=== PATIENT | female | born 1950 | race Caucasian/White ===

== ENCOUNTER → 2018-04-01 09:02 | Outpatient (CLI) | payer MEDICARE, OTHER, SELFPAY ==
--- NOTE | 2018-04-01 | DI.RAD.S_ITS ---
This blank DEXA report has been sent in error by the PACS system. The correct and complete report will be forthcoming in 1-2 days. Thank you for your patience and understanding. Dictated by: Michael Arshad M.D. on 04/01/2018 at 11:44 Approved by: Michael Arshad M.D. on 04/01/2018 at 11:53
--- NOTE | 2018-04-01 | DI.MG.S_ITS ---
BILATERAL DIGITAL SCREENING MAMMOGRAM 3D/2D WITH CAD: 04/01/2018 CLINICAL: Routine screening. Comparison is made to exams dated: 02/04/2017 mammogram, 01/09/2016 mammogram, and 10/03/2014 mammogram - [facility]. There are scattered fibroglandular elements in both breasts. Current study was also evaluated with a Computer Aided Detection (CAD) system. No significant masses, calcifications, or other findings are seen in either breast. There has been no significant interval change. IMPRESSION: NEGATIVE There is no mammographic evidence of malignancy. A 1 year screening mammogram is recommended. This exam was interpreted at Station ID: [id number]. NOTE: For mammograms, a report in lay terms will be sent to the patient. Approximately 15% of breast malignancies will not be visualized mammographically. In the management of a palpable breast mass, a negative mammogram must not discourage biopsy of a clinically suspicious lesion. Electronically Signed By: Fabio talbot/emely:04/01/2018 17:13:41 letter sent: Normal Exam ACR BI-RADS Category 1: Negative [id number]
== END ==
PROVIDERS: PCP Nurse Practitioner Family; Visit Provider Nurse Practitioner Family
DX: Z12.31 Encounter for screening mammogram for malignant neoplasm of breast (principal); M85.852 Other specified disorders of bone density and structure, left thigh; Z78.0 Asymptomatic menopausal state; Z90.722 Acquired absence of ovaries, bilateral; Z85.42 Personal history of malignant neoplasm of other parts of uterus
CPT/HCPCS: 77063; 77067; 77080

== ENCOUNTER 2018-04-02 11:53 | Emergency (ER) | payer MEDICARE, OTHER, SELFPAY ==
--- NOTE | 2018-04-02 12:04 | ED_ITS ---
HPI - Head Injury <EMILY Tolentino - Last Filed: 04/02/18 22:08> General Chief complaint: Fall Stated complaint: fell yesterday; hit face and head Time Seen by Provider: 04/02/18 12:03 Source: patient Mode of arrival: ambulatory Limitations: no limitations History of Present Illness HPI Narrative: 67-year-old female with history of hypertension and is a nonsmoker here for complaint of a ground level fall yesterday. She states she stumbled as her toe got caught on the ground causing her to roll for. She struck her left forehead and orbit area. She reports bruising to the left forehead and to the orbit. She also reports that she has pain to her right hand and left hip area. she denies any loss of consciousness. She denies any nausea or vomiting. She reports increased swelling to the forehead and eye area today. She does not take blood thinners however she does take daily aspirin. she is ambulatory into the emergency room. MD Complaint: head injury and fall Related Data Home Medications Medication Instructions Recorded Confirmed bupropion HCl 04/02/18 citalopram 40 mg PO DAILY 04/02/18 04/02/18 fenofibrate 54 mg PO DAILY 04/02/18 04/02/18 hydrochlorothiazide 12.5 mg PO DAILY 04/02/18 04/02/18 levothyroxine 88 mcg PO DAILY 04/02/18 04/02/18 omeprazole 20 mg PO BID 04/02/18 04/02/18 Allergies Allergy/AdvReac Type Severity Reaction Status Date / Time Iodine and Iodide Containing Allergy Unknown Unverified 07/29/17 12:08 Produc [IODINE AND IODIDE CONTAINING PRODUC] morphine [MORPHINE] Allergy Unknown Unverified 07/29/17 12:08 propoxyphene [PROPOXYPHENE] Allergy Unknown Unverified 07/29/17 12:08 Review of Systems <EMILY Tolentino - Last Filed: 04/02/18 22:08> Constitutional Denies chills, Denies fever(s), Denies lethargy and Denies weakness Eyes Denies change in vision, Denies eye discharge, Denies irritation and Denies loss of vision ENT Ears, Nose, Mouth, and Throat: Denies change in voice, Denies neck pain and Denies sore throat Cardiovascular Denies chest pain, Denies irregular heart rhythm, Denies lightheadedness, Denies palpitations, Denies dyspnea, Denies dyspnea on exertion and Denies orthopnea Respiratory Denies cough, Denies dyspnea, Denies dyspnea on exertion and Denies wheezing Genitourinary Denies hematuria, Denies flank pain, Denies urinary incontinence and Denies urinary urgency Musculoskeletal Denies neck pain Comments: Pain to left hip and right hand Integumentary/Breasts Denies pruritus, Denies erythema, Denies rash and Denies wounds Neurologic Denies confusion, Denies loss of vision and Denies weakness Comments: ground level fall hitting left forehead and orbit area Psychiatric Denies anxiety, Denies confusion, Denies depression, Denies homicidal ideation and Denies suicidal ideation Endocrine Denies palpitations Hematologic/Lymphatic Denies easy bruising Allergic/Immunologic Denies wheezing Exam <EMILY Tolentino - Last Filed: 04/02/18 22:08> Initial Vital Signs Initial Vital Signs: Vital Signs Temperature 98.7 F 04/02/18 12:10 Pulse Rate 52 L 04/02/18 12:10 Respiratory Rate 20 04/02/18 12:10 Blood Pressure 133/61 04/02/18 12:10 Pulse Oximetry 100 04/02/18 12:10 Const General: cooperative and well developed Nutritional Appearance: well nourished Orientation: alert, awake, oriented x3 and not confused [facility] Head: other ( swelling and bruising to the left forehead area and left orbit area. No step-offs. No Guold signs. No open lesions) Nose: external nose normal Mouth: oral mucosae normal and moist mucous membranes Eyes Conjunctivae: conjunctivae normal Sclera: sclerae normal Pupils: PERRL EOM: EOM intact bilaterally Neck Neck: normal visual inspection, trachea midline, No lymphadenopathy, No midline deformity and No JVD Lymphatic: No lymphedema Chest Chest: normal inspection of the chest Resp Effort & Inspection: normal respiratory effort, able to speak in complete sentences, no respiratory distress and no use of accessory muscles Auscultation: clear to auscultation bilaterally, no rales, no rhonchi and no wheezes Cardio Rate: regular rate Rhythm: regular rhythm Heart Sounds: no click, no gallops, no murmurs and no rubs Pulses: normal peripheral pulses Skin General: no rashes or lesions noted, No jaundice and No petechiae Neuro General: alert, oriented x3, gait normal and no focal motor deficits Speech: speech normal Extrem Other: tenderness to palpation to the left hip. No ecchymosis. No swelling. No deformity. No signs of trauma. Distal sensation is intact. Distal range of motions intact. Distal pulses are intact. Slight swelling and bruising to the right palm. no open lesions. No deformities. Distal sensation is intact. Distal cap refill less than 2 sec. Distal range of motion is intact. <Regis Crockett DO - Last Filed: 04/03/18 09:34> Initial Vital Signs Initial Vital Signs: Vital Signs Temperature 98.7 F 04/02/18 12:10 Pulse Rate 52 L 04/02/18 12:10 Respiratory Rate 20 04/02/18 12:10 Blood Pressure 133/61 04/02/18 12:10 Pulse Oximetry 100 04/02/18 12:10 Course <EMILY Tolentino - Last Filed: 04/02/18 22:08> Orders Ordered: ED Orders 04/02/18 12:30 XR hand RT min 3V Stat XR hip w pel if done LT 2V Stat 04/02/18 12:43 CT facial bones wo con Stat CT head/brain wo con Stat Vital Signs - 8 hr 04/02/18 12:10 Temperature 98.7 F Pulse Rate 52 L Respiratory Rate 20 Blood Pressure 133/61 Pulse Oximetry 100 <Regis Crockett DO - Last Filed: 04/03/18 09:34> Orders Ordered: ED Orders 04/02/18 12:30 XR hand RT min 3V Stat XR hip w pel if done LT 2V Stat 04/02/18 12:43 CT facial bones wo con Stat CT head/brain wo con Stat Vital Signs - 8 hr 04/02/18 12:10 Temperature 98.7 F Pulse Rate 52 L Respiratory Rate 20 Blood Pressure 133/61 Pulse Oximetry 100 MDM - Head Injury <EMILY Tolentino - Last Filed: 04/02/18 22:08> Imaging Data CT scan - head: Radiologist's impression: CT Scan Report Signed Patient: Kenyetta Rust KMR#: [id number] : 8Acct:[id number] Age/Sex: 67 / FDate of Service: 04/02/18 Loc: ED Accession Number: [id number] Procedure: CT head/brain wo con Ordering Provider: Otoniel Lynn PROCEDURE: CT HEAD/BRAIN WO CON INDICATIONS: Ground level fall hitting left forehead/face TECHNIQUE: Noncontrast 4.5 mm thick angled axial sections acquired from the foramen magnum to the vertex, with coronal and sagittal reformats. For radiation dose reduction, the following was used: automated exposure control, adjustment of mA and/or kV according to patient size. COMPARISON: None. FINDINGS: Image quality: Excellent. CSF spaces: Basal cisterns are patent. No extra-axial fluid collections. The ventricles are symmetric in size and shape. Brain: No intracranial bleeds or masses. There is mild cerebral volume loss for age, with resultant ventricular and sulcal prominence. There are moderate periventricular and deep white matter chronic small vessel ischemic changes. There is intracranial internal carotid artery atherosclerosis. Skull and face: Calvarium and visualized facial bones appear intact, without suspicious lesions. Small left frontal scalp and/left periorbital facial hematoma noted. Sinuses: Visualized sinuses and mastoids are clear. IMPRESSION: No acute intracranial disease process. Dictated by: Megan Gil MD, PhD on 04/02/2018 at 12:55 Approved by: Megan Gil MD, PhD on 04/02/2018 at 12:58 Facial bones : Radiologist's impression: CT Scan Report Signed Patient: Kenyetta Rust KMR#: [id number] : 8Acct:[id number] Age/Sex: 67 / FDate of Service: 04/02/18 Loc: ED Accession Number: [id number] Procedure: CT facial bones wo con Ordering Provider: Otoniel Lynn PROCEDURE: CT FACIAL BONES WO CON INDICATIONS: ground level fall hitting left forehead and face TECHNIQUE: Noncontrast 2.5 mm thick axial images acquired from the mandible through the frontal sinuses, with coronal and sagittal reformatting. For radiation dose reduction, the following was used: automated exposure control, adjustment of mA and/or kV according to patient size. COMPARISON: None. FINDINGS: Image quality: Excellent. Bones and teeth: Orbital pulido are intact. Sinus pulido show no fracture or deformity. Nasal bones and septum are intact. Visualized portions of the mandible demonstrate no fractures or subluxation. Zygomatic arches are intact. Pterygoid plates are intact. Visualized portions of the skull base and auditory canals are intact. Incidental note made of osteoarthritic degenerative changes in the temporomandibular joints. Sinuses: Paranasal sinuses are aerated, without fluid levels, mucosal thickening, or mucoceles. Mastoid air cells are aerated. Soft tissues: Small left frontal scalp and left periorbital facial hematoma noted. No enlarged lymph nodes. No soft tissue lacerations or debris. Vascular: Visualized vascular structures appear normal in the absence of contrast. Bony vascular foramina and canals are intact. IMPRESSION: No fracture Dictated by: Megan Gil MD, PhD on 04/02/2018 at 12:59 Approved by: Megan Gil MD, PhD on 04/02/2018 at 13:03 left hip : Radiologist's impression: [address] [place] [id number] XRay Report Signed Patient: Kenyetta Rust KMR#: [id number] : 8Acct:[id number] Age/Sex: 67 / FDate of Service: 04/02/18 Loc: ED Accession Number: [id number] Procedure: XR hip w pel if done LT 2V Ordering Provider: Otoniel Lynn PROCEDURE: XR HIP W PEL IF DONE LT 2V INDICATIONS: ground level fall landing on left hip TECHNIQUE: AP pelvis with lateral view(s) of the left hip(s). COMPARISON: None. FINDINGS: Bones: No fractures or dislocations. Lateral curvature of the visualized lower lumbar spine with multilevel discogenic changes. Mild bilateral hip joint degeneration. Pelvic ring appears intact. No suspicious bony lesions. Chronic calcification adjacent to the greater trochanters bilaterally indicating chronic hip abductor tendinopathy Soft tissues: The visualized bowel gas pattern is normal. No suspicious soft tissue calcifications. IMPRESSION: No fracture. Degenerative changes as above. Dictated by: Hector Patel M.D. on 04/02/2018 at 12:53 Approved by: Hector Patel M.D. on 04/02/2018 at 12:55 right hand: Radiologist's impression: [address] [address] XRay Report Signed Patient: Kenyetta Rust KMR#: [id number] : 8Acct:[id number] Age/Sex: 67 / FDate of Service: 04/02/18 Loc: ED Accession Number: [id number] Procedure: XR hand RT min 3V Ordering Provider: Otoniel Lynn PROCEDURE: XR HAND RT MIN 3V INDICATIONS: pain to right hand after ground level fall TECHNIQUE: 3 views of the hand(s) acquired. COMPARISON: None. FINDINGS: Bones: No fractures or dislocations. Carpal bones are normally aligned. No suspicious bony lesions. Fifth metacarpal chronic sessile exostosis. First CMC and triscaphe joint degeneration, and diffuse IP osteoarthritis Soft tissues: No suspicious soft tissue calcifications. IMPRESSION: No fracture identified. If the patient's pain or other symptoms persist, consider further follow up radiographs in 10 days to assess for occult injury, or evaluation with dedicated MRI. Dictated by: Hector Patel M.D. on 04/02/2018 at 12:55 Approved by: Hector Patel M.D. on 04/02/2018 at 12:57 [facility] Narrative Medical decision making narrative: x-rays of the left hip in the right hand were obtained were negative for any acute fractures. Head CT and facial bone CT was obtained and was negative for any acute fractures. Signs symptoms presents as contusions to the left hip and the right hand and left forehead and face. Minor head injury instructions are provided with warning signs return to the emergency room. Over the for Tylenol or Motrin as needed for any discomfort. Ice to help with any swelling. follow up with primary care provider in 1 week for re-evaluation. For any worsening symptoms return to the emergency room. Discharge Plan Departure Patient Disposition: Home Clinical Impression: Contusion of left hip, Contusion of hand, right, Contusion of face, Minor closed head injury Discharge Date/Time: 04/02/18 13:50 Interventions: ED Discharge Assessment Last Done: 04/02/18 13:49 Instructions: DI for Contusion, DI for Closed Head Injury Activity Restrictions/Additional Instructions: imaging today was negative for any acute fractures. Signs and symptoms presents as contusions to face hand and hip. use [id number] Tylenol or Motrin as needed for any discomfort. use ice to the swollen area 20 min at a time a few times a day over the next few days to help with any swelling. Minor head injury instructions are provided with warning signs return to the emergency room. Follow up with primary care provider in 1 week. For any worsening symptoms return to the emergency room. Prescriptions: No Action bupropion HCl 150 mg tablet sustained-release 12 hr RF: 0 citalopram 40 mg tablet 40 mg PO DAILY RF: 0 levothyroxine 88 mcg tablet 88 mcg PO DAILY RF: 0 omeprazole 20 mg capsule,delayed release(DR/EC) 20 mg PO BID RF: 0 hydrochlorothiazide 12.5 mg tablet 12.5 mg PO DAILY RF: 0 fenofibrate 54 mg tablet 54 mg PO DAILY RF: 0 Referrals: Flaca Noble ARNP [Primary Care Provider] - <Regis Crockett DO - Last Filed: 04/03/18 09:34> [facility] ED Attending Vickie Attestation: I was immediately available in the department for consultation. Documentation has been reviewed. I agree with assessment and plan.
[2018-04-02 12:10] VITALS: BP 133/61; PULSE 52; RESP 20; TEMP 37.1; O2SAT 100; BMI 35.6
--- NOTE | 2018-04-02 12:30 | DI.RAD.S_ITS ---
PROCEDURE: XR HAND RT MIN 3V INDICATIONS: pain to right hand after ground level fall TECHNIQUE: 3 views of the hand(s) acquired. COMPARISON: None. FINDINGS: Bones: No fractures or dislocations. Carpal bones are normally aligned. No suspicious bony lesions. Fifth metacarpal chronic sessile exostosis. First CMC and triscaphe joint degeneration, and diffuse IP osteoarthritis Soft tissues: No suspicious soft tissue calcifications. IMPRESSION: No fracture identified. If the patient's pain or other symptoms persist, consider further follow up radiographs in 10 days to assess for occult injury, or evaluation with dedicated MRI. Dictated by: Hector Patel M.D. on 04/02/2018 at 12:55 Approved by: Hector Patel M.D. on 04/02/2018 at 12:57
--- NOTE | 2018-04-02 12:30 | DI.RAD.S_ITS ---
PROCEDURE: XR HIP W PEL IF DONE LT 2V INDICATIONS: ground level fall landing on left hip TECHNIQUE: AP pelvis with lateral view(s) of the left hip(s). COMPARISON: None. FINDINGS: Bones: No fractures or dislocations. Lateral curvature of the visualized lower lumbar spine with multilevel discogenic changes. Mild bilateral hip joint degeneration. Pelvic ring appears intact. No suspicious bony lesions. Chronic calcification adjacent to the greater trochanters bilaterally indicating chronic hip abductor tendinopathy Soft tissues: The visualized bowel gas pattern is normal. No suspicious soft tissue calcifications. IMPRESSION: No fracture. Degenerative changes as above. Dictated by: Hector Patel M.D. on 04/02/2018 at 12:53 Approved by: Hector Patel M.D. on 04/02/2018 at 12:55
--- NOTE | 2018-04-02 12:43 | DI.CT.S_ITS ---
PROCEDURE: CT FACIAL BONES WO CON INDICATIONS: ground level fall hitting left forehead and face TECHNIQUE: Noncontrast 2.5 mm thick axial images acquired from the mandible through the frontal sinuses, with coronal and sagittal reformatting. For radiation dose reduction, the following was used: automated exposure control, adjustment of mA and/or kV according to patient size. COMPARISON: None. FINDINGS: Image quality: Excellent. Bones and teeth: Orbital pulido are intact. Sinus pulido show no fracture or deformity. Nasal bones and septum are intact. Visualized portions of the mandible demonstrate no fractures or subluxation. Zygomatic arches are intact. Pterygoid plates are intact. Visualized portions of the skull base and auditory canals are intact. Incidental note made of osteoarthritic degenerative changes in the temporomandibular joints. Sinuses: Paranasal sinuses are aerated, without fluid levels, mucosal thickening, or mucoceles. Mastoid air cells are aerated. Soft tissues: Small left frontal scalp and left periorbital facial hematoma noted. No enlarged lymph nodes. No soft tissue lacerations or debris. Vascular: Visualized vascular structures appear normal in the absence of contrast. Bony vascular foramina and canals are intact. IMPRESSION: No fracture Dictated by: Megan Gil MD, PhD on 04/02/2018 at 12:59 Approved by: Megan Gil MD, PhD on 04/02/2018 at 13:03
--- NOTE | 2018-04-02 12:43 | DI.CT.S_ITS ---
PROCEDURE: CT HEAD/BRAIN WO CON INDICATIONS: Ground level fall hitting left forehead/face TECHNIQUE: Noncontrast 4.5 mm thick angled axial sections acquired from the foramen magnum to the vertex, with coronal and sagittal reformats. For radiation dose reduction, the following was used: automated exposure control, adjustment of mA and/or kV according to patient size. COMPARISON: None. FINDINGS: Image quality: Excellent. CSF spaces: Basal cisterns are patent. No extra-axial fluid collections. The ventricles are symmetric in size and shape. Brain: No intracranial bleeds or masses. There is mild cerebral volume loss for age, with resultant ventricular and sulcal prominence. There are moderate periventricular and deep white matter chronic small vessel ischemic changes. There is intracranial internal carotid artery atherosclerosis. Skull and face: Calvarium and visualized facial bones appear intact, without suspicious lesions. Small left frontal scalp and/left periorbital facial hematoma noted. Sinuses: Visualized sinuses and mastoids are clear. IMPRESSION: No acute intracranial disease process. Dictated by: Megan Gil MD, PhD on 04/02/2018 at 12:55 Approved by: Megan Gil MD, PhD on 04/02/2018 at 12:58
[2018-04-02 13:43] VITALS: BP 126/59; PULSE 46; RESP 16; O2SAT 99
[2018-04-02 13:49] VITALS: BP 126/59; PULSE 58
== END 2018-04-02 13:50 | disposition home or self-care (01) ==
PROVIDERS: Emergency Provider Nurse Practitioner Family; PCP Nurse Practitioner Family
DX: S00.90XA Unspecified superficial injury of unspecified part of head, initial encounter (principal); S70.02XA Contusion of left hip, initial encounter; S60.221A Contusion of right hand, initial encounter; S00.83XA Contusion of other part of head, initial encounter; W01.0XXA Fall on same level from slipping, tripping and stumbling without subsequent striking against object, initial encounter
CPT/HCPCS: 70450; 70486; 73130; 73502; 99282; 99285

== ENCOUNTER → 2018-08-26 13:58 | Outpatient (CLI) | payer MEDICARE, OTHER, SELFPAY ==
--- NOTE | 2018-08-26 | DI.MRI.S_ITS ---
PROCEDURE: MR STROKE Pre- and post-contrast brain MRI, non-contrast brain MR angiogram, pre- and postcontrast neck MR angiogram INDICATIONS: RECURRENT FALLS/HYPERTENSION TECHNIQUE: Brain: Noncontrast axial T1 spin echo, axial T2 fast spin echo, sagittal and axial FLAIR, coronal T2 fast spin echo, axial gradient echo, axial diffusion and ADC through the brain. After the administration of contrast, axial 3D VIBE of the cranial vasculature and brain. Brain MRA: Non-contrast 3-D time of flight MR angiogram, with multiple ulillup-mphaemycs-itxxidobcm (MIP) reformats performed. Neck MRA: Axial and sagittal TruFISP through the neck. Coronal dynamic MR angiogram during administration of contrast in the arterial and venous phases, with 3-dimenstional xslvvro-kpswuawhq-dennmutwvh (MIP) reformats constructed from subtraction images. COMPARISON: None. FINDINGS: Image quality: Excellent. BRAIN: CSF spaces: Ventricles are normal in size and shape. Basal cisterns are patent. No extra-axial fluid collections. Brain: No intracranial bleeds or mass effects. Solorio-white matter interface is normal. Diffusion weighted images show no acute ischemic insults. Brainstem appears normal. Normal intravascular flow voids are present. No abnormal intracranial enhancement. Skull and face: Calvarial marrow signal is normal. Orbits appear normal. Note is made of bilateral lens replacements. Sinuses: Sinuses and mastoids are clear. BRAIN MR ANGIOGRAM: Anterior circulation: Intracranial internal carotid arteries are normal in size and enhancement. There is a diminutive left A1 segment, with a corresponding robust right A1 segment. This is considered to be a normal developmental variant of the tolowa dee-ni' of [place], of typically no clinical consequence. The flow within the paired anterior cerebral arteries is otherwise normal and symmetric. The flow within the middle cerebral arteries is normal and symmetric. The anterior communicating artery is seen. No stenoses, occlusions, or aneurysms. Posterior circulation: The visualized portions of the vertebral arteries demonstrate normal caliber, and join to form a normal appearing basilar artery. The flow within the posterior cerebral arteries is normal and symmetric. No stenoses, occlusions, or aneurysms. NECK MR ANGIOGRAM: Carotids: Great vessels demonstrate a conventional anatomy as they arise from the aortic arch. The origins of the common carotid arteries appear patent. The calibers and courses of both common carotid arteries are normal. The bifurcation regions appear normal bilaterally. The internal carotid arteries demonstrate normal caliber. There is prominent tortuosity seen of the internal carotid arteries. Posterior circulation: The origins of the vertebral arteries appear patent. More superior portions of both vertebral arteries demonstrate normal course and caliber, and join to form a normal appearing basilar artery. Miscellaneous: Subclavian arteries appear patent. Pre-contrast images through the neck show no soft tissue abnormalities. IMPRESSION: BRAIN MRI: No findings of acute or subacute infarction can be seen. Note is made of age-appropriate brain parenchymal volume loss and chronic small vessel ischemic changes. No masses or abnormal enhancement can be seen. BRAIN MR ANGIOGRAM: No significant intracranial arterial abnormality is seen. NECK MR ANGIOGRAM: Within the arteries of the neck, no hemodynamically significant stenosis can be seen. Prominently tortuous internal carotid arteries are noted. Dictated by: Mati Vieira M.D. on 08/26/2018 at 17:12 Approved by: Mati Vieira M.D. on 08/26/2018 at 17:16
== END ==
PROVIDERS: PCP Nurse Practitioner Family; Visit Provider Nurse Practitioner Family
DX: Z91.81 History of falling (principal); I10 Essential (primary) hypertension; I77.1 Stricture of artery
CPT/HCPCS: 70548; 70553; A9579

== ENCOUNTER 2019-02-03 13:00 | Outpatient (RCR) | payer MEDICARE, OTHER, SELFPAY ==
--- NOTE | 2018-11-16 13:32 | PT.OIE ---
Current Diagnoses Full incontinence of feces (11/10/18) Provider Visit Care Team Role Provider Type EMILY Ko Attending Provider Non-Staff Primary Care Provider Specialty: Medical Address: [address] [place] [address], [id number] Email: Physical Therapy Initial Evaluation PT-OP-A Visit Information Start: 11/10/18 10:59 Freq: Status: Active Protocol: Document 11/10/18 10:45 [facility] (Rec: 11/16/18 13:31 [facility] [email or web address]) Out-Patient Physical Therapy Visit Information Visit Information Visit Type Initial Evaluation Visit Note 68 year old female with c/o fecal incontinence as well as urinary incontinence Visit Start Time 10:45 Visit Stop Time 11:30 Total Visit Minutes 45 Visit Number 1 Evaluation Information Evaluation Date 11/10/18 PT-OP-B Current Condition Start: 11/10/18 10:59 Freq: Status: Active Protocol: Document 11/10/18 11:00 [facility] (Rec: 11/10/18 11:17 [facility] [id number]) Current Condition History of Current Condition Onset Date symptoms began several months ago Current Complaints fecal incontinence History of Current Condition In the last few weeks symptoms of fecal leakage have not been as bad. Pt reports she will get a pain or a cramping sensation in her abdomen and she knows with that sensation that she has to find a bathroom or she will leak. Pt reports 3 times per day she has a bowel movement. She is reporting urinary leakage as well frequently Hx of partial hysterectomy 1978, gall bladder sugery 1995 , and scoliosis, she has pain in her back all the time. Treatment Goals Patient/Caregiver Goals Include reducing fecal incontinence Current Functional Impairments (Reported) Functional Limitations- Recreation/ limited with recreational Hobbies activities due to fecal leakage PT-OP-I Pelvic Floor Start: 11/10/18 10:59 Freq: Status: Active Protocol: Document 11/10/18 10:45 [facility] (Rec: 11/16/18 13:31 [facility] [email or web address]) Pelvic Floor Assessment Urine Pelvic Floor Surgery No Urinary Symptoms Urge Sensation Leakage Size Medium Leakage Cause Urge Other Leakage Causes symptoms of urinary leakage are worse first thing in the am as she often leaks upon first waking up in the am Leaks Per Day varies Voiding Frequency 7-8 times per day Nocturia 1 Urine Pad Type Panty Liner Pelvic Clock Pelvic Clock 12-3 Atrophy Pelvic Clock 3-6 Guarding Tenderness Tightness Pelvic Clock 6-9 Atrophy Pelvic Clock 9-12 Atrophy Pelvic Clock Other left lateral wall of the levator ani is very guarded and tight SEMG (uV) Baseline 6.0 10 Second Contraction 8 Recruitment Pattern Poor/Slow Relaxation Poor/Slow Holding Fair Stability of Hold Fair SEMG Stability of Rest Poor/Slow Contraction Ability Voluntary Contraction Weak Voluntary Relaxation Weak Manual Muscle Testing Left 2 Manual Muscle Testing Right 2 Manual Muscle Testing Anterior 2 Manual Muscle Testing Posterior 2 Muscle Endurance (Seconds) 4 Comments Pelvic Floor Comments rectal sensor was used vaginally today as Kenyetta felt the vaginal sensor was uncomfortable due to tightness in the tissue. Elevated resting tone of the levator ani on EMG biofeedback at 6 uv PT-OP-M Strength Start: 11/10/18 10:59 Freq: Status: Active Protocol: Document 11/10/18 10:45 [facility] (Rec: 11/16/18 13:31 [facility] [email or web address]) Trunk Strength Trunk Manual Muscle Testing Testing Position Supine Flexion 2+ Poor+ Core Stabilization poor activation of the transverse abdominal musculature Hip Strength Hip Manual Muscle Testing Left Abduction 3 Fair External Rotation 3 Fair Right Abduction 3 Fair External Rotation 3 Fair PT-OP-Q Treatments Start: 11/10/18 10:59 Freq: Status: Active Protocol: Document 11/10/18 10:45 [facility] (Rec: 11/16/18 13:31 [facility] [email or web address]) Therapeutic Exercises Supine Exercises 2 Supine Exercise Name pelvic floor long holds x 10 seconds and relax x 10 sec Side bilateral Reps/Minutes 2-3 sets per day x 10 reps Comments EMG biofeedback assisted 1 Supine Exercise Name modified pelvic floor stretch in happy baby position Side bilateral Reps/Minutes hold 1-2 min PT-OP-T Assessment and Plan Start: 11/10/18 10:59 Freq: Status: Active Protocol: Document 11/10/18 10:45 [facility] (Rec: 11/16/18 13:31 [facility] [email or web address]) Physical Therapy Assessment Rehab Potential Rehabilitation Potential Good Evaluation Complexity Number of Personal Factors/Comorbidities 0 Number of Body Systems Impaired 1-2 Clinical Presentation at Evaluation Stable Impairments Impairments Activity Tolerance Pain Soft Tissue Mobility Strength Goals Four Impairment Guarding of the left lateral wall of the illiococcygeus Snf Goal (LTG) With a home stretching program and manual therapy there is no longer guarding in the left illiococcygeus and Kenyetta is able to relax her pelvic floor to baseline on EMG biofeedback LTG Duration 8 weeks Three Impairment Decreased endurance of the pelvic floor < 4 second hold time Short Term Goal (STG) Kenyetta is able to improve the endurance of her pelvic floor to 10 second hold time in supine without substitution of her gluteals or upper abdominal wall. STG Duration 4 weeks Snf Goal (LTG) Kenyetta is able to sustain a pelvic floor contraction in standing for 10 seconds without global muscle substitution LTG Duration 8 weeks Two Impairment pelvic floor weakness with MMT 2/5 pelvic clock Short Term Goal (STG) With EMG biofeedback Kenyetta has improved awareness of the pelvic floor and is demonstrating improved facilitation STG Duration 4 weeks Snf Goal (LTG) Improve strength of the pelvic floor to 3/5 or greater on MMT for improved support of the bowels and bladder LTG Duration 8 weeks One Impairment Fecal incontinence and urinary urge incontinence Tutoring Assistant Goal (LTG) Praveena is able to improve her pelvic floor strength to reduce incidence of both fecal and urinary incontinence. LTG Duration 8 weeks Assessment Summary Assessment Kenyetta presents to physical therapy today with signs and symptoms consistent with pelvic floor weakness and fecal leakage. She is also presenting with urinary urge incontinence. She reports her symptoms have gotten better on their own in the past month and she is not sure why but she is using mini pads now instead of the depends daily. With pelvic floor examination she is weak in the levator ani with 2/5 MMT for all parts of the levator ani. She is very guarded in the left lateral wall of the illiococcygeus and has difficulty relaxing here. Her resting tone on EMG biofeedback is elevated at 6.0 uv. She has difficulty sustaining a contraction of her pelvic floor greater than 4 seconds. Treatment will focus on both relaxed awareness of the pelvic floor to fully empty her bladder as well as bowel training to help fully eliminate stool. Treatment will also focus on pelvic floor strengthening to help support the bowel and bladder and reduce both urinary and fecal incontinence . Kenyetta is a good candidate for PT Physical Therapy Plan Frequency and Duration Frequency of Treatment 1x/Week Duration of Treatment 8 weeks Plan of Care Start Date 11/10/18 Plan of Care End Date 01/05/19 Therapeutic Interventions Therapeutic Interventions Home Exercise Program Manual Therapy Neuromuscular Re-education Patient/Caregiver Education Self-Care/Home Management Soft Tissue Mobilization Therapeutic Exercises Modalities Biofeedback
--- NOTE | 2018-11-17 11:53 | PT.OTN ---
Current Diagnoses Full incontinence of feces (11/17/18) Physical Therapy Treatment Note PT-OP-A Visit Information Start: 11/10/18 10:59 Freq: Status: Active Protocol: Document 11/17/18 11:47 [facility] (Rec: 11/17/18 11:53 [facility] [email or web address]) Out-Patient Physical Therapy Visit Information Visit Information Visit Type Treatment Note Visit Start Time 10:55 Visit Stop Time 11:40 Total Visit Minutes 45 Visit Number 2 PT-OP-B Current Condition Start: 11/10/18 10:59 Freq: Status: Active Protocol: Document 11/10/18 11:00 [facility] (Rec: 11/10/18 11:17 [facility] [id number]) Current Condition History of Current Condition Onset Date symptoms began several months ago Current Complaints fecal incontinence History of Current Condition In the last few weeks symptoms of fecal leakage have not been as bad. Pt reports she will get a pain or a cramping sensation in her abdomen and she knows with that sensation that she has to find a bathroom or she will leak. Pt reports 3 times per day she has a bowel movement. She is reporting urinary leakage as well frequently Hx of partial hysterectomy 1978, gall bladder sugery 1995 , and scoliosis, she has pain in her back all the time. Treatment Goals Patient/Caregiver Goals Include reducing fecal incontinence Current Functional Impairments (Reported) Functional Limitations- Recreation/ limited with recreational Hobbies activities due to fecal leakage PT-OP-C Subjective Start: 11/10/18 10:59 Freq: Status: Active Protocol: Document 11/17/18 11:47 [facility] (Rec: 11/17/18 11:53 [facility] [email or web address]) OP-PT Subjective Patient Comments Patient Comments Kenyetta reports she has been working on her exercises and she is a little sore across her lower abdomen PT-OP-I Pelvic Floor Start: 11/10/18 10:59 Freq: Status: Active Protocol: Document 11/10/18 10:45 [facility] (Rec: 11/16/18 13:31 [facility] [email or web address]) Pelvic Floor Assessment Urine Pelvic Floor Surgery No Urinary Symptoms Urge Sensation Leakage Size Medium Leakage Cause Urge Other Leakage Causes symptoms of urinary leakage are worse first thing in the am as she often leaks upon first waking up in the am Leaks Per Day varies Voiding Frequency 7-8 times per day Nocturia 1 Urine Pad Type Panty Liner Pelvic Clock Pelvic Clock 12-3 Atrophy Pelvic Clock 3-6 Guarding Tenderness Tightness Pelvic Clock 6-9 Atrophy Pelvic Clock 9-12 Atrophy Pelvic Clock Other left lateral wall of the levator ani is very guarded and tight SEMG (uV) Baseline 6.0 10 Second Contraction 8 Recruitment Pattern Poor/Slow Relaxation Poor/Slow Holding Fair Stability of Hold Fair SEMG Stability of Rest Poor/Slow Contraction Ability Voluntary Contraction Weak Voluntary Relaxation Weak Manual Muscle Testing Left 2 Manual Muscle Testing Right 2 Manual Muscle Testing Anterior 2 Manual Muscle Testing Posterior 2 Muscle Endurance (Seconds) 4 Comments Pelvic Floor Comments rectal sensor was used vaginally today as Kenyetta felt the vaginal sensor was uncomfortable due to tightness in the tissue. Elevated resting tone of the levator ani on EMG biofeedback at 6 uv PT-OP-M Strength Start: 11/10/18 10:59 Freq: Status: Active Protocol: Document 11/10/18 10:45 [facility] (Rec: 11/16/18 13:31 [facility] [email or web address]) Trunk Strength Trunk Manual Muscle Testing Testing Position Supine Flexion 2+ Poor+ Core Stabilization poor activation of the transverse abdominal musculature Hip Strength Hip Manual Muscle Testing Left Abduction 3 Fair External Rotation 3 Fair Right Abduction 3 Fair External Rotation 3 Fair PT-OP-Q Treatments Start: 11/10/18 10:59 Freq: Status: Active Protocol: Document 11/17/18 11:47 [facility] (Rec: 11/17/18 11:53 [facility] [email or web address]) Therapeutic Exercises Supine Exercises 6 Supine Exercise Name quick contraction Reps/Minutes 2 sec on 2 sec off x 10 reps 5 Supine Exercise Name Roll outs with theraband Reps/Minutes 3 x 10 2 second hold 4 Supine Exercise Name ball squeeze with pelvic floor contraction Reps/Minutes x 10 reps 5 second hold 3 Supine Exercise Name piriformis stretch Reps/Minutes 2 x 30 second hold time 2 Supine Exercise Name pelvic floor long holds x 10 seconds and relax x 10 sec Side bilateral Reps/Minutes 2-3 sets per day x 10 reps Comments EMG biofeedback assisted 1 Supine Exercise Name modified pelvic floor stretch in happy baby position Side bilateral Reps/Minutes hold 1-2 min Neuro Re-Education Treatment Other Activities 1 Details EMG biofeedback pelvic floor facilitation and neuro facilitation Comments Pelvic floor neuro facilitation and worked on relaxed awareness of the pelvic floor. Kenyetta was able to drop to baseline, also worked on urge deference technique PT-OP-T Assessment and Plan Start: 11/10/18 10:59 Freq: Status: Active Protocol: Document 11/17/18 11:47 [facility] (Rec: 11/17/18 11:53 [facility] [email or web address]) Physical Therapy Assessment Assessment Summary Assessment Average resting tone on EMG biofeedback relaxed to baseline today following stretches. Average work today was 5.2 uv with average rest of 1.5 uv and max of 11.8 uv Physical Therapy Plan Frequency and Duration Frequency of Treatment 1x/Week Duration of Treatment 8 weeks Plan of Care Start Date 11/10/18 Plan of Care End Date 01/05/19 Therapeutic Interventions Therapeutic Interventions Home Exercise Program Manual Therapy Neuromuscular Re-education Patient/Caregiver Education Self-Care/Home Management Soft Tissue Mobilization Therapeutic Exercises Modalities Biofeedback Next Visit Focus/Plan Next Note Type Treatment Note Next Visit Plan review urge deference technique and continue to progress pelvic floor and inner core stabilization
--- NOTE | 2018-12-20 08:16 | PT.OTN ---
Current Diagnoses Full incontinence of feces (12/15/18) Physical Therapy Treatment Note PT-OP-A Visit Information Start: 11/10/18 10:59 Freq: Status: Active Protocol: Document 12/15/18 11:02 [facility] (Rec: 12/15/18 11:09 [facility] [id number]) Out-Patient Physical Therapy Visit Information Visit Information Visit Type Treatment Note Visit Note pt was 15 min late due to traffic Visit Start Time 11:00 Visit Stop Time 11:30 Total Visit Minutes 30 Visit Number 3 PT-OP-B Current Condition Start: 11/10/18 10:59 Freq: Status: Active Protocol: Document 11/10/18 11:00 [facility] (Rec: 11/10/18 11:17 [facility] [id number]) Current Condition History of Current Condition Onset Date symptoms began several months ago Current Complaints fecal incontinence History of Current Condition In the last few weeks symptoms of fecal leakage have not been as bad. Pt reports she will get a pain or a cramping sensation in her abdomen and she knows with that sensation that she has to find a bathroom or she will leak. Pt reports 3 times per day she has a bowel movement. She is reporting urinary leakage as well frequently Hx of partial hysterectomy 1978, gall bladder sugery 1995 , and scoliosis, she has pain in her back all the time. Treatment Goals Patient/Caregiver Goals Include reducing fecal incontinence Current Functional Impairments (Reported) Functional Limitations- Recreation/ limited with recreational Hobbies activities due to fecal leakage PT-OP-C Subjective Start: 11/10/18 10:59 Freq: Status: Active Protocol: Document 12/15/18 11:02 [facility] (Rec: 12/15/18 11:09 [facility] [id number]) OP-PT Subjective Patient Comments Patient Comments Not as sore across her abdomen now, symptoms are better, no more cramping sensation and very little leakage now. Patient Reported Progress Improving PT-OP-I Pelvic Floor Start: 11/10/18 10:59 Freq: Status: Active Protocol: Document 11/10/18 10:45 [facility] (Rec: 11/16/18 13:31 [facility] [email or web address]) Pelvic Floor Assessment Urine Pelvic Floor Surgery No Urinary Symptoms Urge Sensation Leakage Size Medium Leakage Cause Urge Other Leakage Causes symptoms of urinary leakage are worse first thing in the am as she often leaks upon first waking up in the am Leaks Per Day varies Voiding Frequency 7-8 times per day Nocturia 1 Urine Pad Type Panty Liner Pelvic Clock Pelvic Clock 12-3 Atrophy Pelvic Clock 3-6 Guarding,Tenderness,Tightness Pelvic Clock 6-9 Atrophy Pelvic Clock 9-12 Atrophy Pelvic Clock Other left lateral wall of the levator ani is very guarded and tight SEMG (uV) Baseline 6.0 10 Second Contraction 8 Recruitment Pattern Poor/Slow Relaxation Poor/Slow Holding Fair Stability of Hold Fair SEMG Stability of Rest Poor/Slow Contraction Ability Voluntary Contraction Weak Voluntary Relaxation Weak Manual Muscle Testing Left 2 Manual Muscle Testing Right 2 Manual Muscle Testing Anterior 2 Manual Muscle Testing Posterior 2 Muscle Endurance (Seconds) 4 Comments Pelvic Floor Comments rectal sensor was used vaginally today as Kenyetta felt the vaginal sensor was uncomfortable due to tightness in the tissue. Elevated resting tone of the levator ani on EMG biofeedback at 6 uv PT-OP-M Strength Start: 11/10/18 10:59 Freq: Status: Active Protocol: Document 11/10/18 10:45 [facility] (Rec: 11/16/18 13:31 [facility] [email or web address]) Trunk Strength Trunk Manual Muscle Testing Testing Position Supine Flexion 2+ Poor+ Core Stabilization poor activation of the transverse abdominal musculature Hip Strength Hip Manual Muscle Testing Left Abduction 3 Fair External Rotation 3 Fair Right Abduction 3 Fair External Rotation 3 Fair PT-OP-Q Treatments Start: 11/10/18 10:59 Freq: Status: Active Protocol: Document 12/15/18 11:00 [facility] (Rec: 12/20/18 08:16 [facility] [email or web address]) Therapeutic Exercises Supine Exercises 6 Supine Exercise Name quick contraction Reps/Minutes 2 sec on 2 sec off x 10 reps 5 Supine Exercise Name Roll outs with theraband Reps/Minutes 3 x 10 2 second hold 4 Supine Exercise Name ball squeeze with pelvic floor contraction Reps/Minutes x 10 reps 5 second hold 3 Supine Exercise Name piriformis stretch Reps/Minutes 2 x 30 second hold time 2 Supine Exercise Name pelvic floor long holds x 10 seconds and relax x 10 sec Side bilateral Reps/Minutes 2-3 sets per day x 10 reps Comments EMG biofeedback assisted 1 Supine Exercise Name modified pelvic floor stretch in happy baby position Side bilateral Reps/Minutes hold 1-2 min PT-OP-T Assessment and Plan Start: 11/10/18 10:59 Freq: Status: Active Protocol: Document 12/15/18 11:00 [facility] (Rec: 12/20/18 08:16 [facility] [email or web address]) Physical Therapy Assessment Assessment Summary Assessment Good increase in stretch average work today was 7.0 uv and max was 12 uv. Resting tone continues to decrease Physical Therapy Plan Frequency and Duration Frequency of Treatment 1x/Week Duration of Treatment 8 weeks Plan of Care Start Date 11/10/18 Plan of Care End Date 01/05/19 Therapeutic Interventions Therapeutic Interventions Home Exercise Program,Manual Therapy,Neuromuscular Re- education,Patient/Caregiver Education,Self-Care/Home Management,Soft Tissue Mobilization,Therapeutic Exercises Modalities Biofeedback Next Visit Focus/Plan Next Note Type Treatment Note Next Visit Plan continue to progress pelvic floor and hip strengthening, urge deference technique
--- NOTE | 2018-12-30 11:10 | PT.OTN ---
Current Diagnoses Full incontinence of feces (12/22/18) Physical Therapy Treatment Note PT-OP-A Visit Information Start: 11/10/18 10:59 Freq: Status: Active Protocol: Document 12/22/18 10:45 [facility] (Rec: 12/30/18 11:10 [facility] [email or web address]) Out-Patient Physical Therapy Visit Information Visit Information Visit Type Treatment Note Visit Start Time 10:45 Visit Stop Time 11:30 Total Visit Minutes 45 Visit Number 4 PT-OP-B Current Condition Start: 11/10/18 10:59 Freq: Status: Active Protocol: Document 11/10/18 11:00 [facility] (Rec: 11/10/18 11:17 [facility] [id number]) Current Condition History of Current Condition Onset Date symptoms began several months ago Current Complaints fecal incontinence History of Current Condition In the last few weeks symptoms of fecal leakage have not been as bad. Pt reports she will get a pain or a cramping sensation in her abdomen and she knows with that sensation that she has to find a bathroom or she will leak. Pt reports 3 times per day she has a bowel movement. She is reporting urinary leakage as well frequently Hx of partial hysterectomy 1978, gall bladder sugery 1995 , and scoliosis, she has pain in her back all the time. Treatment Goals Patient/Caregiver Goals Include reducing fecal incontinence Current Functional Impairments (Reported) Functional Limitations- Recreation/ limited with recreational Hobbies activities due to fecal leakage PT-OP-C Subjective Start: 11/10/18 10:59 Freq: Status: Active Protocol: Document 12/22/18 10:45 [facility] (Rec: 12/30/18 11:10 [facility] [email or web address]) OP-PT Subjective Patient Comments Patient Comments noticing improvements of symptoms overall. Doing her exercises at home PT-OP-I Pelvic Floor Start: 11/10/18 10:59 Freq: Status: Active Protocol: Document 11/10/18 10:45 [facility] (Rec: 11/16/18 13:31 [facility] [email or web address]) Pelvic Floor Assessment Urine Pelvic Floor Surgery No Urinary Symptoms Urge Sensation Leakage Size Medium Leakage Cause Urge Other Leakage Causes symptoms of urinary leakage are worse first thing in the am as she often leaks upon first waking up in the am Leaks Per Day varies Voiding Frequency 7-8 times per day Nocturia 1 Urine Pad Type Panty Liner Pelvic Clock Pelvic Clock 12-3 Atrophy Pelvic Clock 3-6 Guarding,Tenderness,Tightness Pelvic Clock 6-9 Atrophy Pelvic Clock 9-12 Atrophy Pelvic Clock Other left lateral wall of the levator ani is very guarded and tight SEMG (uV) Baseline 6.0 10 Second Contraction 8 Recruitment Pattern Poor/Slow Relaxation Poor/Slow Holding Fair Stability of Hold Fair SEMG Stability of Rest Poor/Slow Contraction Ability Voluntary Contraction Weak Voluntary Relaxation Weak Manual Muscle Testing Left 2 Manual Muscle Testing Right 2 Manual Muscle Testing Anterior 2 Manual Muscle Testing Posterior 2 Muscle Endurance (Seconds) 4 Comments Pelvic Floor Comments rectal sensor was used vaginally today as Kenyetta felt the vaginal sensor was uncomfortable due to tightness in the tissue. Elevated resting tone of the levator ani on EMG biofeedback at 6 uv PT-OP-M Strength Start: 11/10/18 10:59 Freq: Status: Active Protocol: Document 11/10/18 10:45 [facility] (Rec: 11/16/18 13:31 [facility] [email or web address]) Trunk Strength Trunk Manual Muscle Testing Testing Position Supine Flexion 2+ Poor+ Core Stabilization poor activation of the transverse abdominal musculature Hip Strength Hip Manual Muscle Testing Left Abduction 3 Fair External Rotation 3 Fair Right Abduction 3 Fair External Rotation 3 Fair PT-OP-Q Treatments Start: 11/10/18 10:59 Freq: Status: Active Protocol: Document 12/22/18 10:45 [facility] (Rec: 12/30/18 11:10 [facility] [email or web address]) Therapeutic Exercises Supine Exercises 6 Supine Exercise Name quick contraction Reps/Minutes 2 sec on 2 sec off x 10 reps 5 Supine Exercise Name Roll outs with theraband Reps/Minutes 3 x 10 2 second hold 4 Supine Exercise Name ball squeeze with pelvic floor contraction Reps/Minutes x 10 reps 5 second hold 3 Supine Exercise Name piriformis stretch Reps/Minutes 2 x 30 second hold time 2 Supine Exercise Name pelvic floor long holds x 10 seconds and relax x 10 sec Side bilateral Reps/Minutes 2-3 sets per day x 10 reps Comments EMG biofeedback assisted 1 Supine Exercise Name modified pelvic floor stretch in happy baby position Side bilateral Reps/Minutes hold 1-2 min PT-OP-T Assessment and Plan Start: 11/10/18 10:59 Freq: Status: Active Protocol: Document 12/22/18 10:45 [facility] (Rec: 12/30/18 11:10 [facility] [email or web address]) Physical Therapy Assessment Assessment Summary Assessment no longer c/o abdominal tightnesss following her exercises. Improved strength of the pelvic floor as well as decreased resting tone Physical Therapy Plan Frequency and Duration Frequency of Treatment 1x/Week Duration of Treatment 8 weeks Plan of Care Start Date 11/10/18 Plan of Care End Date 01/05/19 Next Visit Focus/Plan Next Note Type Treatment Note Next Visit Plan continue to progress pelvic floor and hip strengthening, urge deference technique
--- NOTE | 2019-02-03 13:00 | PT.OTN ---
Current Diagnoses Full incontinence of feces (02/03/19) Physical Therapy Treatment Note PT-OP-A Visit Information Start: 11/10/18 10:59 Freq: Status: Active Protocol: Document 12/22/18 10:45 [facility] (Rec: 12/30/18 11:10 [facility] [id number]) Out-Patient Physical Therapy Visit Information Visit Information Visit Type Treatment Note Visit Start Time 10:45 Visit Stop Time 11:30 Total Visit Minutes 45 Visit Number 4 PT-OP-B Current Condition Start: 11/10/18 10:59 Freq: Status: Active Protocol: Document 11/10/18 11:00 [facility] (Rec: 11/10/18 11:17 [facility] [id number]) Current Condition History of Current Condition Onset Date symptoms began several months ago Current Complaints fecal incontinence History of Current Condition In the last few weeks symptoms of fecal leakage have not been as bad. Pt reports she will get a pain or a cramping sensation in her abdomen and she knows with that sensation that she has to find a bathroom or she will leak. Pt reports 3 times per day she has a bowel movement. She is reporting urinary leakage as well frequently Hx of partial hysterectomy 1978, gall bladder sugery 1995 , and scoliosis, she has pain in her back all the time. Treatment Goals Patient/Caregiver Goals Include reducing fecal incontinence Current Functional Impairments (Reported) Functional Limitations- Recreation/ limited with recreational Hobbies activities due to fecal leakage PT-OP-C Subjective Start: 11/10/18 10:59 Freq: Status: Active Protocol: Document 02/03/19 13:00 [facility] (Rec: 02/08/19 09:17 [facility] [email or web address]) OP-PT Subjective Patient Comments Patient Comments Kenyetta reports she is doing much better overall and has not been experiencing any fecal leakage. She notes she has not experienced any urinary incontinence symptoms in a long time. She is now able to sleep better through the night and can get to the bathroom first thing in the AM 98 % of the time PT-OP-I Pelvic Floor Start: 11/10/18 10:59 Freq: Status: Active Protocol: Document 11/10/18 10:45 [facility] (Rec: 11/16/18 13:31 [facility] [email or web address]) Pelvic Floor Assessment Urine Pelvic Floor Surgery No Urinary Symptoms Urge Sensation Leakage Size Medium Leakage Cause Urge Other Leakage Causes symptoms of urinary leakage are worse first thing in the am as she often leaks upon first waking up in the am Leaks Per Day varies Voiding Frequency 7-8 times per day Nocturia 1 Urine Pad Type Panty Liner Pelvic Clock Pelvic Clock 12-3 Atrophy Pelvic Clock 3-6 Guarding,Tenderness,Tightness Pelvic Clock 6-9 Atrophy Pelvic Clock 9-12 Atrophy Pelvic Clock Other left lateral wall of the levator ani is very guarded and tight SEMG (uV) Baseline 6.0 10 Second Contraction 8 Recruitment Pattern Poor/Slow Relaxation Poor/Slow Holding Fair Stability of Hold Fair SEMG Stability of Rest Poor/Slow Contraction Ability Voluntary Contraction Weak Voluntary Relaxation Weak Manual Muscle Testing Left 2 Manual Muscle Testing Right 2 Manual Muscle Testing Anterior 2 Manual Muscle Testing Posterior 2 Muscle Endurance (Seconds) 4 Comments Pelvic Floor Comments rectal sensor was used vaginally today as Kenyetta felt the vaginal sensor was uncomfortable due to tightness in the tissue. Elevated resting tone of the levator ani on EMG biofeedback at 6 uv PT-OP-M Strength Start: 11/10/18 10:59 Freq: Status: Active Protocol: Document 11/10/18 10:45 [facility] (Rec: 11/16/18 13:31 [facility] [email or web address]) Trunk Strength Trunk Manual Muscle Testing Testing Position Supine Flexion 2+ Poor+ Core Stabilization poor activation of the transverse abdominal musculature Hip Strength Hip Manual Muscle Testing Left Abduction 3 Fair External Rotation 3 Fair Right Abduction 3 Fair External Rotation 3 Fair PT-OP-Q Treatments Start: 11/10/18 10:59 Freq: Status: Active Protocol: Document 02/03/19 13:00 [facility] (Rec: 02/08/19 09:17 [facility] [email or web address]) Therapeutic Exercises Supine Exercises 6 Supine Exercise Name quick contraction Reps/Minutes 2 sec on 2 sec off x 10 reps 5 Supine Exercise Name Roll outs with theraband Reps/Minutes 3 x 10 2 second hold 4 Supine Exercise Name ball squeeze with pelvic floor contraction Reps/Minutes x 10 reps 5 second hold 3 Supine Exercise Name piriformis stretch Reps/Minutes 2 x 30 second hold time 2 Supine Exercise Name pelvic floor long holds x 10 seconds and relax x 10 sec Side bilateral Reps/Minutes 2-3 sets per day x 10 reps Comments EMG biofeedback assisted 1 Supine Exercise Name modified pelvic floor stretch in happy baby position Side bilateral Reps/Minutes hold 1-2 min Standing Exercises 1 Standing Exercise Name sit to stand with pelvic floor contraction PT-OP-T Assessment and Plan Start: 11/10/18 10:59 Freq: Status: Active Protocol: Document 02/03/19 13:00 [facility] (Rec: 02/08/19 09:17 [facility] [id number]) Physical Therapy Assessment Goals Four Impairment Guarding of the left lateral wall of the illiococcygeus Coating Manager Goal (LTG) With a home stretching program and manual therapy there is no longer guarding in the left illiococcygeus and Kenyetta is able to relax her pelvic floor to baseline on EMG biofeedback GOAL MET LTG Duration 8 weeks Three Impairment Decreased endurance of the pelvic floor < 4 second hold time Short Term Goal (STG) Kenyetta is able to improve the endurance of her pelvic floor to 10 second hold time in supine without substitution of her gluteals or upper abdominal wall. GOAL MET STG Duration 4 weeks Senior Living Goal (LTG) Kenyetta is able to sustain a pelvic floor contraction in standing for 10 seconds without global muscle substitution GOAL MET LTG Duration 8 weeks Two Impairment pelvic floor weakness with MMT 2/5 pelvic clock Short Term Goal (STG) With EMG biofeedback Kenyetta has improved awareness of the pelvic floor and is demonstrating improved facilitation GOAL MET STG Duration 4 weeks Coating Manager Goal (LTG) Improve strength of the pelvic floor to 3/5 or greater on MMT for improved support of the bowels and bladder GOAL MET LTG Duration 8 weeks One Impairment Fecal incontinence and urinary urge incontinence Senior Living Goal (LTG) Praveena is able to improve her pelvic floor strength to reduce incidence of both fecal and urinary incontinence. GOAL MET LTG Duration 8 weeks Assessment Summary Assessment Kenyetta has made great overall progress. She is no longer experiencing fecal leakage and her symptoms of urinary incontience are 98% better. she is sleeping better through the night without having to get up more than 1 time to void. She will be discharged from PT at this time with goals met. Physical Therapy Plan Discharge Physical Therapy Discharge Reasons Goals Met
--- NOTE | 2019-02-08 09:18 | PT.OPDS ---
Current Diagnoses Full incontinence of feces (02/03/19) Visit Care Team Role Provider Type EMILY Ko Attending Provider Non-Staff Primary Care Provider Specialty: Medical Address: [address] [place] [address], [facility] Email: Visit Number Visit Number 4 Discharge Summary PT-OP-B Current Condition Start: 11/10/18 10:59 Freq: Status: Active Protocol: Document 11/10/18 11:00 [facility] (Rec: 11/10/18 11:17 [facility] [id number]) Current Condition History of Current Condition Onset Date symptoms began several months ago Current Complaints fecal incontinence History of Current Condition In the last few weeks symptoms of fecal leakage have not been as bad. Pt reports she will get a pain or a cramping sensation in her abdomen and she knows with that sensation that she has to find a bathroom or she will leak. Pt reports 3 times per day she has a bowel movement. She is reporting urinary leakage as well frequently Hx of partial hysterectomy 1978, gall bladder sugery 1995 , and scoliosis, she has pain in her back all the time. Treatment Goals Patient/Caregiver Goals Include reducing fecal incontinence Current Functional Impairments (Reported) Functional Limitations- Recreation/ limited with recreational Hobbies activities due to fecal leakage PT-OP-C Subjective Start: 11/10/18 10:59 Freq: Status: Active Protocol: Document 02/03/19 13:00 [facility] (Rec: 02/08/19 09:17 [facility] [email or web address]) OP-PT Subjective Patient Comments Patient Comments Kenyetta reports she is doing much better overall and has not been experiencing any fecal leakage. She notes she has not experienced any urinary incontinence symptoms in a long time. She is now able to sleep better through the night and can get to the bathroom first thing in the AM 98 % of the time PT-OP-I Pelvic Floor Start: 11/10/18 10:59 Freq: Status: Active Protocol: Document 11/10/18 10:45 [facility] (Rec: 11/16/18 13:31 [facility] [email or web address]) Pelvic Floor Assessment Urine Pelvic Floor Surgery No Urinary Symptoms Urge Sensation Leakage Size Medium Leakage Cause Urge Other Leakage Causes symptoms of urinary leakage are worse first thing in the am as she often leaks upon first waking up in the am Leaks Per Day varies Voiding Frequency 7-8 times per day Nocturia 1 Urine Pad Type Panty Liner Pelvic Clock Pelvic Clock 12-3 Atrophy Pelvic Clock 3-6 Guarding,Tenderness,Tightness Pelvic Clock 6-9 Atrophy Pelvic Clock 9-12 Atrophy Pelvic Clock Other left lateral wall of the levator ani is very guarded and tight SEMG (uV) Baseline 6.0 10 Second Contraction 8 Recruitment Pattern Poor/Slow Relaxation Poor/Slow Holding Fair Stability of Hold Fair SEMG Stability of Rest Poor/Slow Contraction Ability Voluntary Contraction Weak Voluntary Relaxation Weak Manual Muscle Testing Left 2 Manual Muscle Testing Right 2 Manual Muscle Testing Anterior 2 Manual Muscle Testing Posterior 2 Muscle Endurance (Seconds) 4 Comments Pelvic Floor Comments rectal sensor was used vaginally today as Kenyetta felt the vaginal sensor was uncomfortable due to tightness in the tissue. Elevated resting tone of the levator ani on EMG biofeedback at 6 uv PT-OP-M Strength Start: 11/10/18 10:59 Freq: Status: Active Protocol: Document 11/10/18 10:45 [facility] (Rec: 11/16/18 13:31 [facility] [email or web address]) Trunk Strength Trunk Manual Muscle Testing Testing Position Supine Flexion 2+ Poor+ Core Stabilization poor activation of the transverse abdominal musculature Hip Strength Hip Manual Muscle Testing Left Abduction 3 Fair External Rotation 3 Fair Right Abduction 3 Fair External Rotation 3 Fair PT-OP-T Assessment and Plan Start: 11/10/18 10:59 Freq: Status: Active Protocol: Document 02/03/19 13:00 [facility] (Rec: 02/08/19 09:17 [facility] [email or web address]) Physical Therapy Assessment Goals Four Impairment Guarding of the left lateral wall of the illiococcygeus Research Scientist Goal (LTG) With a home stretching program and manual therapy there is no longer guarding in the left illiococcygeus and Kenyetta is able to relax her pelvic floor to baseline on EMG biofeedback GOAL MET LTG Duration 8 weeks Three Impairment Decreased endurance of the pelvic floor < 4 second hold time Short Term Goal (STG) Kenyetta is able to improve the endurance of her pelvic floor to 10 second hold time in supine without substitution of her gluteals or upper abdominal wall. GOAL MET STG Duration 4 weeks Snf Goal (LTG) Kenyetta is able to sustain a pelvic floor contraction in standing for 10 seconds without global muscle substitution GOAL MET LTG Duration 8 weeks Two Impairment pelvic floor weakness with MMT 2/5 pelvic clock Short Term Goal (STG) With EMG biofeedback Kenyetta has improved awareness of the pelvic floor and is demonstrating improved facilitation GOAL MET STG Duration 4 weeks Research Scientist Goal (LTG) Improve strength of the pelvic floor to 3/5 or greater on MMT for improved support of the bowels and bladder GOAL MET LTG Duration 8 weeks One Impairment Fecal incontinence and urinary urge incontinence Snf Goal (LTG) Kenyetta is able to improve her pelvic floor strength to reduce incidence of both fecal and urinary incontinence. GOAL MET LTG Duration 8 weeks Assessment Summary Assessment Kenyetta has made great overall progress. She is no longer experiencing fecal leakage and her symptoms of urinary incontinence are 98% better. she is sleeping better through the night without having to get up more than 1 time to void. She will be discharged from PT at this time with goals met. Physical Therapy Plan Discharge Physical Therapy Discharge Reasons Goals Met
== END 2019-02-16 16:31 | disposition home or self-care (01) ==
LOC: PHYS 13:00
PROVIDERS: PCP Nurse Practitioner Family; Visit Provider Nurse Practitioner Family
DX: R15.9 Full incontinence of feces (principal)
CPT/HCPCS: 97110; 97112; 97161

== ENCOUNTER → 2019-02-18 12:17 | Outpatient (CLI) | payer MEDICARE, OTHER, SELFPAY ==
--- NOTE | 2019-02-18 | DI.RAD.S_ITS ---
PROCEDURE: XR RIBS LT MIN 3V W CXR1V INDICATIONS: XR ANT LT RIBS 7-8 PAIN, CONTUSION TECHNIQUE: 2 views of the left ribs were acquired, along with a single view chest. COMPARISON: None. FINDINGS: Surgical changes and devices: None. Bones and chest wall: Cortical irregularity involving the lateral fourth and fifth left ribs although seen on one view only. Elsewhere, no fracture No suspicious bony lesions. Overlying soft tissues appear unremarkable. Lungs and pleura: No pleural effusions or pneumothorax. Lungs appear clear. Mediastinum: Mediastinal contours appear normal. Heart size is normal. IMPRESSION: Mild cortical irregularity involving the lateral fourth and fifth left ribs although this could be projectional artifact, and only present on one view. This appears distant from the clinical area of concern marked by the BB therefore please correlate with point tenderness. If there is persistent clinical uncertainty, followup rib series could be performed in 10 days to assess for healing sclerosis. Elsewhere, no fracture. No acute cardiopulmonary disease. Dictated by: Hector Patel M.D. on 02/18/2019 at 13:59 Approved by: Hector Patel M.D. on 02/18/2019 at 14:04
== END ==
PROVIDERS: PCP Nurse Practitioner Family; Visit Provider Nurse Practitioner Family
DX: R07.81 Pleurodynia (principal); S20.212A Contusion of left front wall of thorax, initial encounter
CPT/HCPCS: 71101

== ENCOUNTER → 2019-05-10 11:17 | Outpatient (CLI) | payer MEDICARE, OTHER, SELFPAY ==
--- NOTE | 2019-05-10 | DI.MG.S_ITS ---
BILATERAL DIGITAL SCREENING MAMMOGRAM 3D/2D WITH CAD: 05/10/2019 CLINICAL: Routine screening. Comparison is made to exams dated: 04/01/2018 mammogram, 02/04/2017 mammogram, and 01/09/2016 mammogram - [facility]. There are scattered fibroglandular elements in both breasts. Current study was also evaluated with a Computer Aided Detection (CAD) system. No significant masses, calcifications, or other findings are seen in either breast. There has been no significant interval change. IMPRESSION: NEGATIVE There is no mammographic evidence of malignancy. A 1 year screening mammogram is recommended. This exam was interpreted at Station ID: [id number]. NOTE: For mammograms, a report in lay terms will be sent to the patient. Approximately 15% of breast malignancies will not be visualized mammographically. In the management of a palpable breast mass, a negative mammogram must not discourage biopsy of a clinically suspicious lesion. Electronically Signed By: Hugo ling/emely:05/10/2019 16:37:10 letter sent: Normal Exam ACR BI-RADS Category 1: Negative 3341F
== END ==
PROVIDERS: PCP Nurse Practitioner Family; Visit Provider Nurse Practitioner Family
DX: Z12.31 Encounter for screening mammogram for malignant neoplasm of breast (principal)
CPT/HCPCS: 77063; 77067

== ENCOUNTER → 2019-09-20 09:49 | Outpatient (CLI) | payer MEDICARE, OTHER, SELFPAY ==
--- NOTE | 2019-09-20 | DI.RAD.S_ITS ---
PROCEDURE: XR KNEE RT 3V INDICATIONS: Right knee pain including weight bearing TECHNIQUE: 3 views of the knee were acquired, including to weight-bearing views. COMPARISON: None. Prior knee plain films are not available from the archive for review at the time of this dictation. FINDINGS: Bones: No fractures or dislocations. No suspicious bony lesions. There is moderate to severe lateral femorotibial joint space narrowing seen, with associated remodeling changes including subchondral sclerosis and osteophyte formation along the jointline. On the sunrise view, there is mild lateral patellofemoral joint space narrowing seen. Osteophyte formation can be seen along the margins of the patella. Soft tissues: There is a moderate joint effusion. No suspicious soft tissue calcifications. 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 Dictated by: Mati Vieira M.D. on 09/20/2019 at 9:14 Approved by: Mati Vieira M.D. on 09/20/2019 at 9:16
== END ==
PROVIDERS: PCP Internal Medicine; Referring Provider Internal Medicine; Visit Provider Internal Medicine
DX: M25.561 Pain in right knee (principal); M25.461 Effusion, right knee; M25.761 Osteophyte, right knee
CPT/HCPCS: 73562

== ENCOUNTER → 2020-05-24 15:51 | Outpatient (CLI) | payer MEDICARE, OTHER, SELFPAY ==
--- NOTE | 2020-05-24 15:53 | DI.MG.S_ITS ---
BILATERAL DIGITAL SCREENING MAMMOGRAM 3D/2D WITH CAD: 05/24/2020 CLINICAL: Routine screening. Comparison is made to exams dated: 05/10/2019 mammogram, 04/01/2018 mammogram, and 02/04/2017 mammogram - [facility]. The tissue of both breasts is predominantly fatty. Current study was also evaluated with a Computer Aided Detection (CAD) system. No significant masses, calcifications, or other findings are seen in either breast. There has been no significant interval change. IMPRESSION: NEGATIVE There is no mammographic evidence of malignancy. A 1 year screening mammogram is recommended. This exam was interpreted at Station ID: [id number]. NOTE: For mammograms, a report in lay terms will be sent to the patient. Approximately 15% of breast malignancies will not be visualized mammographically. In the management of a palpable breast mass, a negative mammogram must not discourage biopsy of a clinically suspicious lesion. Electronically Signed By: Liu de leon/emely:05/24/2020 16:20:05 letter sent: Normal Exam ACR BI-RADS Category 1: Negative 3341F
== END ==
PROVIDERS: PCP Internal Medicine; Referring Provider Internal Medicine; Visit Provider Internal Medicine
DX: Z12.31 Encounter for screening mammogram for malignant neoplasm of breast (principal)
CPT/HCPCS: 77063; 77067

== ENCOUNTER → 2020-07-24 12:20 | Outpatient (CLI) | payer MEDICARE, SELFPAY ==
--- NOTE | 2020-07-24 13:22 | DI.CT.S_ITS ---
PROCEDURE: CT ABDOMEN PELVIS W CON INDICATIONS: Left lower quadrant pain TECHNIQUE: After the administration of oral and intravenous contrast, 5 mm thick sections acquired from the diaphragms to the symphysis. 5 mm thick coronal and sagittal reformats were performed. For radiation dose reduction, the following was used: automated exposure control, adjustment of mA and/or kV according to patient size. COMPARISON: None. FINDINGS: Image quality: Excellent. ABDOMEN: Lung bases: Lung bases are clear. Heart size is normal. There is a moderate hiatal hernia behind the heart. Solid organs: Liver is normal in size and enhancement. Gallbladder has been previously resected. Biliary system is non-dilated. Pancreas enhances normally. Spleen is normal in size and enhancement. No adrenal nodules. Kidneys are normal in size and enhancement, without hydronephrosis. There is an exophytic posterior right renal cortical cyst that is measured at up to 4.6 cm. This is water in internal radiodensity and simple in character. Peritoneum and bowel: Stomach, small bowel, and colon loops are normal in caliber and wall thickness. No free fluid or air. Nodes and vessels: No retroperitoneal or mesenteric adenopathy. Aorta and inferior vena cava are normal in caliber. Miscellaneous: No ventral hernias. PELVIS: . Genitourinary: Bladder wall thickness is normal. Prior hysterectomy. Miscellaneous: No inguinal hernias or adenopathy. There is diverticulosis without definite acute diverticulitis, but minimal stranding is noted within the pericolonic fat in the deep left side Colles at, seen on series 2, image 73. Slight diverticulitis could produce that appearance as could scarring from prior diverticulitis Bones: No suspicious bony lesions. No vertebral body compression fractures. IMPRESSION: A definite finding of diverticulitis is not found at the left lower quadrant. As noted there is slight stranding in the pericolonic fat in that area but this could represent mild scarring from prior acute diverticulitis. [id number] diverticulosis involves the sigmoid colon elsewhere. Prior hysterectomy, no abnormal fluid collection. The ovaries could not be located. Prior cholecystectomy. Dictated by: Dakotah Roberts M.D. on 07/24/2020 at 15:34 Approved by: Dakotah Roberts M.D. on 07/24/2020 at 15:38
== END ==
PROVIDERS: PCP Internal Medicine; Referring Provider Nurse Practitioner Family; Visit Provider Nurse Practitioner Family
DX: R10.32 Left lower quadrant pain (principal); K57.30 Diverticulosis of large intestine without perforation or abscess without bleeding
CPT/HCPCS: 74177; Q9967

== ENCOUNTER → 2020-11-20 15:15 | Outpatient (CLI) | payer MEDICARE, SELFPAY ==
--- NOTE | 2020-11-20 15:18 | DI.RAD.S_ITS ---
PROCEDURE: XR ANKLE LT MIN 3V INDICATIONS: LT ANKLE INJURY TECHNIQUE: 3 views of the ankle were acquired. COMPARISON: None. FINDINGS: Bones: Small osseous density seen adjacent to the tip of the lateral malleolus where there is mild soft tissue swelling. Ankle mortise is symmetric. Plantar calcaneal enthesophyte.. Ankle mortise is normally aligned. No suspicious bony lesions. Soft tissues: No tibiotalar joint effusion. Calcification along the distal Achilles tendon. IMPRESSION: 1. Lateral malleolar soft tissue swelling and osseous density adjacent to the tip of the lateral malleolus which could represent an avulsion fracture. Recommend correlation to point tenderness as the chronicity of the abnormality is indeterminate. Dictated by: Juan Ramon Carmen [facility] Interpreted: Dakotah Roberts MD on 11/20/2020 at 16:34 Transcribed by: SANTI on 11/20/2020 at 16:35 Approved by: Dakotah Roberts M.D. on 11/21/2020 at 17:11
== END ==
PROVIDERS: PCP Internal Medicine; Referring Provider Internal Medicine; Visit Provider Internal Medicine
DX: S99.912A Unspecified injury of left ankle, initial encounter (principal); X58.XXXA Exposure to other specified factors, initial encounter
CPT/HCPCS: 73610

== ENCOUNTER → 2020-12-03 12:32 | Outpatient (CLI) | payer MEDICARE, SELFPAY ==
--- NOTE | 2020-12-03 | DI.RAD.S_ITS ---
PROCEDURE: XR ANKLE LT MIN 3V INDICATIONS: Unspecified injury of left ankle, initial encounter TECHNIQUE: 3 views of the ankle were acquired. COMPARISON: , CR, XR ANKLE LT MIN 3V, 11/20/2020, 15:16. FINDINGS: Bones: No fractures or dislocations. Ankle mortise is normally aligned. No suspicious bony lesions. Small plantar calcaneal spur present. Soft tissues: No tibiotalar joint effusion. Stippled calcification noted along the Achilles tendon, unchanged. Mild generalized soft tissue swelling present. IMPRESSION: Mild soft tissue swelling without fracture or foreign body Small calcaneal spur Approved by: Dario Carrillo M.D. on 12/03/2020 at 12:49
== END ==
PROVIDERS: PCP Internal Medicine; Referring Provider Internal Medicine; Visit Provider Internal Medicine
DX: S99.912A Unspecified injury of left ankle, initial encounter (principal); M79.89 Other specified soft tissue disorders; M77.32 Calcaneal spur, left foot; X58.XXXA Exposure to other specified factors, initial encounter
CPT/HCPCS: 73610

== ENCOUNTER → 2021-05-29 14:57 | Outpatient (CLI) | payer MEDICARE, SELFPAY ==
--- NOTE | 2021-05-29 | DI.MG.S_ITS ---
BILATERAL DIGITAL SCREENING MAMMOGRAM 3D/2D WITH CAD: 05/29/2021 CLINICAL: Routine screening. Comparison is made to exams dated: 05/24/2020 mammogram, 05/10/2019 mammogram, and 04/01/2018 mammogram - [facility]. The tissue of both breasts is predominantly fatty. Current study was also evaluated with a Computer Aided Detection (CAD) system. No significant masses, calcifications, or other findings are seen in either breast. There has been no significant interval change. IMPRESSION: NEGATIVE There is no mammographic evidence of malignancy. A 1 year screening mammogram is recommended. This exam was interpreted at Station ID: [id number]. NOTE: For mammograms, a report in lay terms will be sent to the patient. Approximately 15% of breast malignancies will not be visualized mammographically. In the management of a palpable breast mass, a negative mammogram must not discourage biopsy of a clinically suspicious lesion. Electronically Signed By: Liu de leon/emely:05/29/2021 15:16:11 letter sent: Normal Exam ACR BI-RADS Category 1: Negative 3341F
== END ==
PROVIDERS: PCP Family Medicine; Referring Provider Family Medicine; Visit Provider Family Medicine
DX: Z12.31 Encounter for screening mammogram for malignant neoplasm of breast (principal)
CPT/HCPCS: 77063; 77067

== ENCOUNTER → 2022-09-24 15:03 | Outpatient (CLI) | payer MEDICARE, SELFPAY ==
--- NOTE | 2022-09-24 | DI.MG.S_ITS ---
BILATERAL DIGITAL SCREENING MAMMOGRAM 3D/2D WITH CAD: 09/24/2022 CLINICAL: Routine screening. Family history of breast cancer. Comparison is made to exams dated: 05/29/2021 mammogram, 05/24/2020 mammogram, and 05/10/2019 mammogram - . Both breasts are almost entirely fatty (category a/<25% glandular tissue). Current study was also evaluated with a Computer Aided Detection (CAD) system. No significant masses, calcifications, or other findings are seen in either breast. There has been no significant interval change. IMPRESSION: NEGATIVE There is no mammographic evidence of malignancy. A 1 year screening mammogram is recommended. Based on the Tyrer Cuzick model (a risk assessment model) the patient's lifetime risk is 1.4% and her 10 year risk is 1.2%. According to the ACR, ACS, and NCCN guidelines, an annual breast MRI exam along with mammogram is recommended if the patient's lifetime risk is 20% or greater. This exam was interpreted at Station ID: [id number]. NOTE: For mammograms, a report in lay terms will be sent to the patient. Approximately 15% of breast malignancies will not be visualized mammographically. In the management of a palpable breast mass, a negative mammogram must not discourage biopsy of a clinically suspicious lesion. Electronically Signed By: Gama snider/emely:09/25/2022 07:46:18 letter sent: Normal Exam ACR BI-RADS Category 1: Negative [id number]
== END ==
PROVIDERS: PCP Family Medicine; Referring Provider Family Medicine; Visit Provider Family Medicine
DX: Z12.31 Encounter for screening mammogram for malignant neoplasm of breast (principal); Z80.3 Family history of malignant neoplasm of breast
CPT/HCPCS: 77063; 77067

== ENCOUNTER → 2023-09-28 11:36 | Outpatient (CLI) | payer MEDICARE, SELFPAY ==
--- NOTE | 2023-09-28 11:37 | DI.MG.S_ITS ---
BILATERAL DIGITAL SCREENING MAMMOGRAM 3D/2D WITH CAD: 09/28/2023 CLINICAL: Routine screening. Family history of breast cancer. Comparison is made to exams dated: 09/24/2022 mammogram, 05/29/2021 mammogram, and 05/24/2020 mammogram - [facility]. Both breasts are almost entirely fatty (category a/<25% glandular tissue). Current study was also evaluated with a Computer Aided Detection (CAD) system. No significant masses, calcifications, or other findings are seen in either breast. There has been no significant interval change. IMPRESSION: NEGATIVE There is no mammographic evidence of malignancy. A 1 year screening mammogram is recommended. Based on the Tyrer Cuzick model (a risk assessment model) the patient's lifetime risk is 1.3% and her 10 year risk is 1.3%. According to the ACR, ACS, and NCCN guidelines, an annual breast MRI exam along with mammogram is recommended if the patient's lifetime risk is 20% or greater. This exam was interpreted at Station ID: [id number]. NOTE: For mammograms, a report in lay terms will be sent to the patient. Approximately 15% of breast malignancies will not be visualized mammographically. In the management of a palpable breast mass, a negative mammogram must not discourage biopsy of a clinically suspicious lesion. Electronically Signed By: Gama snider/emely:09/30/2023 09:49:26 letter sent: Normal Exam ACR BI-RADS Category 1: Negative [id number]
== END ==
PROVIDERS: PCP Family Medicine; Referring Provider Family Medicine; Visit Provider Family Medicine
DX: Z12.31 Encounter for screening mammogram for malignant neoplasm of breast (principal); R92.313 Mammographic fatty tissue density, bilateral breasts
CPT/HCPCS: 77063; 77067